=== PATIENT | male | born 1975 | race Caucasian/White ===

== ENCOUNTER 2022-04-29 00:46 | Day surgery (SDC) | payer OTHER, SELFPAY ==
[2022-04-13 15:53] VITALS: BMI 32.3
[2022-04-29 09:55] VITALS: BP 142/88; PULSE 82; RESP 20; TEMP 36.2; O2SAT 100
[2022-04-29] MEDS: LACTATED RINGERS 1,000 ML 150 ML IV CONT (10:08)
--- NOTE | 2022-04-29 10:18 | PM.HPGS ---
History of Present Illness History of Present Illness Consent: Risks, benefits, and alternatives have been discussed and questions answered. Patient agrees to proceed with procedure. Chief complaint: Fam hx of colon cancer Narrative: Paxton Rincon is a 47 year old male Presents for screening colonoscopy. Patient's current weight appetite bowel movements are normal. Patient denies abdominal pain. He has had no bleeding. Family history is significant that his mother had colon cancer. Patient reports prior colonoscopy several years ago that was unremarkable. He presents today for neoplasia screening. Review of Systems Review of Systems: Review of systems noncontributory. [facility] Past Medical History Medical History (Updated 03/08/22 @ 18:03 by Kevin Montoya MD) BMI 37.0-37.9, adult BMI 38.0-38.9,adult BMI 39.0-39.9,adult Encounter for prostate cancer screening PSA 1.51 on 09/18/2021. Family history of colon cancer in mother Hypersomnia Medial epicondylitis of left elbow (~2021) Obesity (BMI 30-39.9) Shift work sleep disorder patient currently work straight days. Social History Social History Smoking status: Former smoker Tobacco type: cigarettes Alcohol intake: never Substance use: never Substance use type: does not use Living arrangements: with family Spiritual care concerns: No Meds Home Medications and Allergies Home Medications Medication Instructions Recorded Confirmed Type lancets (OneTouch UltraSoft #100 ea 07/31/19 09/14/21 Rx Lancets) blood-glucose meter (Accu-Chek #1 ea 06/23/20 09/14/21 Rx Guide Glucose Meter) metformin 500 mg tablet,extended 1,000 mg PO BID #120 tabs 02/02/21 04/13/22 Rx release 24 hr atorvastatin 40 mg tablet (Lipitor) 40 mg PO DAILY #30 tabs 03/22/21 04/13/22 Rx amlodipine 5 mg tablet 5 mg PO DAILY #30 tabs 05/31/21 04/13/22 Rx lisinopril 40 mg tablet 40 mg PO DAILY #30 tabs 07/16/21 04/13/22 Rx blood sugar diagnostic (Accu-Chek #100 ea 10/10/21 Rx Guide test strips) empagliflozin 25 mg tablet 25 mg PO DAILY #90 tabs 10/26/21 04/13/22 Rx (Jardiance) naproxen 500 mg tablet (Naprosyn) 500 mg PO BID PRN pain #60 tabs 01/03/22 04/13/22 Rx semaglutide 2 mg/dose (8 mg/3 mL) 2 mg (0.75 mL) subcut WEEKLY #3 mL 02/17/22 04/13/22 Rx subcutaneous pen injector (Ozempic) sodium,potassium,mag sulfates 17.5 See Rx Instructions PO .COMPLEX 03/18/22 Rx gram-3.13 gram-1.6 gram oral soln #354 mL (Suprep Bowel Prep Kit) Allergies Allergy/AdvReac Type Severity Reaction Status Date / Time No Known Allergies Allergy Mild Verified 04/29/22 09:54 Vital Signs Vital Signs - 24 hr 04/29/22 09:55 Temperature 97.1 F L Pulse Rate 82 Respiratory Rate 20 Blood Pressure 142/88 H Pulse Oximetry 100 Oxygen Delivery Room Air Exam Narrative: Physical exam reveals patient to be alert. Vital signs stable. HEENT exam is unremarkable. Patient is anicteric. Lungs are clear to auscultation and percussion. Heart is without murmur or extra sounds. Abdomen bowel sounds are present soft nontender with no organomegaly. Digital external rectal exam is normal. Assessment and Plan Assessment and plan (1) Family history of colon cancer in mother: Code(s): Z80.0 - Family history of malignant neoplasm of digestive organs Status: Acute Assessment and Plan: Patient's mother had colon cancer. Because of this family history follow-up colonoscopy suggested now consider this a 5 year intervals in the future.
--- NOTE | 2022-04-29 10:20 | WPDANESEPPF ---
Anes - Initial Pre Proc Eval Procedure: Operation Date: 04/29/22 11:30 Proposed Procedures p Screening Colonoscopy - Edward Gomez MD Date/Time: 04/29/22 10:20 Surgeon: Edward Gomez MD Pre Op Diagnosis: Fam hx of colon cancer Patient Data Age: 47 Gender: M Height: 1.68 m Weight: 99.1 kg Last Vital Signs Temp 36.2 C L 04/29/22 09:55 Pulse 82 04/29/22 09:55 Resp 20 04/29/22 09:55 BP 142/88 H 04/29/22 09:55 Pulse Ox 100 04/29/22 09:55 O2 Del Method Room Air 04/29/22 09:55 Allergies Allergy/AdvReac Type Severity Reaction Status Date / Time No Known Allergies Allergy Mild Verified 04/29/22 09:54 Home Medications Medication Instructions Recorded Confirmed Type lancets (OneTouch UltraSoft #100 ea 07/31/19 09/14/21 Rx Lancets) blood-glucose meter (Accu-Chek #1 ea 06/23/20 09/14/21 Rx Guide Glucose Meter) metformin 500 mg tablet,extended 1,000 mg PO BID #120 tabs 02/02/21 04/13/22 Rx release 24 hr atorvastatin 40 mg tablet (Lipitor) 40 mg PO DAILY #30 tabs 03/22/21 04/13/22 Rx amlodipine 5 mg tablet 5 mg PO DAILY #30 tabs 05/31/21 04/13/22 Rx lisinopril 40 mg tablet 40 mg PO DAILY #30 tabs 07/16/21 04/13/22 Rx blood sugar diagnostic (Accu-Chek #100 ea 10/10/21 Rx Guide test strips) empagliflozin 25 mg tablet 25 mg PO DAILY #90 tabs 10/26/21 04/13/22 Rx (Jardiance) naproxen 500 mg tablet (Naprosyn) 500 mg PO BID PRN pain #60 tabs 01/03/22 04/13/22 Rx semaglutide 2 mg/dose (8 mg/3 mL) 2 mg (0.75 mL) subcut WEEKLY #3 mL 02/17/22 04/13/22 Rx subcutaneous pen injector (Ozempic) sodium,potassium,mag sulfates 17.5 See Rx Instructions PO .COMPLEX 03/18/22 Rx gram-3.13 gram-1.6 gram oral soln #354 mL (Suprep Bowel Prep Kit) Patient hx anesthesia problems: none Family hx anesthesia problems: none Results Review: All pre-operative results and documents have been reviewed as part of the pre-operative evaluation. [facility] Past Medical History Medical History BMI 37.0-37.9, adult BMI 38.0-38.9,adult BMI 39.0-39.9,adult Encounter for prostate cancer screening PSA 1.51 on 09/18/2021. Family history of colon cancer in mother Hypersomnia Medial epicondylitis of left elbow (~2021) Obesity (BMI 30-39.9) Shift work sleep disorder patient currently work straight days. Social History Social History Smoking status: Former smoker Tobacco type: cigarettes Alcohol intake: never Substance use: never Substance use type: does not use Living arrangements: with family Spiritual care concerns: No Anes - Eval Final PreProcedure Day of Procedure 04/29/22 10:20 Patient weight: obese Heart: regular rate and rhythm Lungs: clear to auscultation Airway: Mallampati scale class II Neurological: alert and oriented Last oral intake: >/= 8 hours Emergent: no Anesthetic plan: proceed Anesthesia type and monitoring: general GIVS and standard monitoring Results Review: All pre-operative results and documents have been reviewed as part of the pre-operative evaluation. Informed Consent: The patient's anesthetic plan and its attendant risks and benefits were discussed with the patient/family/POA. Questions were solicited and answers provided to the satisfaction of the patient/family/POA.
[2022-04-29 10:23] LABS: Glucose Point of Care 112 mg/dl (65-105)
[2022-04-29 11:13] VITALS: BP 122/76; PULSE 83; RESP 17; O2SAT 97
[2022-04-29 11:23] VITALS: BP 126/83; PULSE 79; RESP 20; O2SAT 95
[2022-04-29 11:33] VITALS: BP 123/85; PULSE 78; RESP 24; O2SAT 98
== END 2022-04-29 11:44 | disposition home or self-care (01) ==
PROVIDERS: PCP Family Medicine; Visit Provider Internal Medicine Gastroenterology
PROC: 0DJD8ZZ Inspection of Lower Intestinal Tract, Via Natural or Artificial Opening Endoscopic (ICD-10-PCS; CPT 45378; principal; 2022-04-29 11:30)
DX: Z12.11 Encounter for screening for malignant neoplasm of colon (principal); K64.8 Other hemorrhoids; Z80.0 Family history of malignant neoplasm of digestive organs; Z79.84 Long term (current) use of oral hypoglycemic drugs; Z79.899 Other long term (current) drug therapy; E66.9 Obesity, unspecified; Z68.35 Body mass index [BMI] 35.0-35.9, adult; Z87.891 Personal history of nicotine dependence
CPT/HCPCS: 45378; 82948; J2704; J7120

== ENCOUNTER 2023-10-14 19:15 | Emergency (ER) | payer BC, SELFPAY ==
--- NOTE | ~2023-10-14 | XR_ITS ---
EXAMINATION: XR ribs RT 2V Exam Date/Time: 10/14/2023 19:25 CDT HISTORY: LOWER RIGHT RIB PAIN AFTER USING [id number] TODAY Comparison: None available. RESULT: Lines, tubes, and devices: None. Lungs and pleura: Clear. Cardiothymic silhouette: Stable. Other: No acute osseous or upper abdominal finding. Slight angular deformity of the lateral right 10 th rib IMPRESSION: No acute cardiopulmonary process. Nondisplaced right lateral 10th rib fracture. Reviewed, dictated and finalized at location K.
--- NOTE | 2023-10-14 19:20 | ED.GENADULT ---
HPI - General Adult General Chief complaint: Unspecified Stated complaint: R Rib Pain Time Seen by Provider: 10/14/23 19:20 Source: patient Mode of arrival: ambulatory Limitations: no limitations History of Present Illness HPI narrative: This is a 48-year-old male that presents with some right lower rib pain radiating into his mid rib and mid back area after he was on water slide and injured his right rib area patient has pain with some deep inspiration otherwise no shortness of breath no audible wheezing no nausea vomiting no other injuries noted. Patient has a history of diabetes and hypertension. Onset (ago): hour(s) Location: chest Radiation: back Severity: moderate Severity scale (1-10): 8 Quality: sharp and constant Pain Consistency: constant Relieving factors: immobilization Exacerbating factors: movement Associated symptoms: denies other symptoms Related Data Allergies Allergy/AdvReac Type Severity Reaction Status Date / Time No Known Allergies Allergy Mild Verified 04/29/22 09:54 Review of Systems Review of Systems: All systems reviewed & are unremarkable except as noted in HPI and below PMFSH Past Medical History Medical History BMI 35.0-35.9,adult BMI 36.0-36.9,adult BMI 37.0-37.9, adult BMI 38.0-38.9,adult BMI 39.0-39.9,adult Encounter for prostate cancer screening PSA 1.51 on 09/18/2021. PSA 1.58 on 03/25/2023. Family history of colon cancer in mother Colonoscopy on 04/29/[address] Gomez with recheck in 5 years. Hypersomnia Medial epicondylitis of left elbow (~2021) Obesity (BMI 30-39.9) Right shoulder pain (~08/2023) Screening for diabetic retinopathy (08/16/22) mild diabetic retinopathy both eyes 08/16/2022. Shift work sleep disorder patient currently work straight days. Social History Social History Smoking status: Former smoker Tobacco type: cigarettes Alcohol intake: never Substance use: never Substance use type: does not use Current Housing: Decline to Answer Concerned About Future Housing: Decline to Answer Difficulty Paying Gas/Electric Bills: Decline to Answer Difficulty Paying for Meds: Decline to Answer Currently Unemployed: Decline to Answer Education: Decline to Answer Difficulty w/ Childcare or Family Care: Decline to Answer Living arrangements: with family Spiritual care concerns: No Exam Const: General: cooperative, healthy appearing, comfortable, no acute distress, well developed and alert Neck: Neck: normal visual inspection, full ROM and no lymphadenopathy Resp: Effort & Inspection: normal respiratory effort and able to speak in complete sentences Auscultation: clear to auscultation bilaterally Cardio: Jugular venous distension: no JVD Palpation: normal PMI Rate: regular rate Rhythm: regular rhythm GI: Inspection: normal to inspection Percussion: Yes normal to percussion Auscultation: normal bowel sounds Back/Spine/Pelvis: Back: no CVA tenderness Cervical Spine: normal cervical lordosis Thoracic/Lumbar Spine: thoracic and lumbar spine normal to inspection Other: Right lower pain Skin: General skin exam: normal color Course Course Emergency Course: patient receive 60mg IM Toradol and after reassessment pain is mildly improved, x-rays performed and reviewed with patient. Critical Care Time Critical Care Time Critical Care Time: No Discharge Plan Discharge Clinical Impression: Rib sprain Qualifiers: Encounter type: initial encounter Qualified Code(s): S23.41XA - Sprain of ribs, initial encounter Patient Disposition: Home, Self-Care Condition: Stable Instructions: Antibiotic Form, Musculoskeletal Pain (ED) Additional Instructions: advised to take medication as prescribed and follow up with primary if symptoms persist or worsen. Prescriptions: New tramadol 50 mg tablet
--- NOTE | 2023-10-14 19:30 | PC.NURSE ---
patient transported to xray via wheel chair
[2023-10-14] MEDS: KETOROLAC (*BKC) 60 MG/2 ML VIAL IM (19:47)
[2023-10-14 20:09] VITALS: BP 152/96; PULSE 85; RESP 18; O2SAT 93
== END 2023-10-14 20:09 | disposition home or self-care (01) ==
PROVIDERS: Emergency Provider Emergency Medicine; PCP Family Medicine
DX: S23.41XA Sprain of ribs, initial encounter (principal); E11.9 Type 2 diabetes mellitus without complications; I10 Essential (primary) hypertension; Z87.891 Personal history of nicotine dependence; Z79.84 Long term (current) use of oral hypoglycemic drugs; X58.XXXA Exposure to other specified factors, initial encounter
CPT/HCPCS: 71100; 96372; 99283; J1885